=== PATIENT | male | born 1980 ===

== ENCOUNTER 2017-01-06 22:44 | Emergency (ER) | payer MEDICAID ==
[2017-01-07] MEDS ORDERED: IBUPROFEN 600 MG TABLET ONE (01:21)
[2017-01-07] MEDS ORDERED: ACETAMINOPHEN 500 MG TABLET ONE (01:21)
--- NOTE | 2017-01-07 08:11 | RAD ---
Exam: Two-view chest COMPARISON: 01/20/2015, 03/19/2014 INDICATION: Cough and fever. FINDINGS: PA and lateral views of the chest were obtained. Cardiac silhouette is within normal limits and stable. There is no focal airspace disease or pleural effusion. Bones of the chest wall within normal limits. IMPRESSION: No radiographic evidence of pneumonia.
== END 2017-01-07 02:38 | disposition home or self-care (01) ==
LOC: ED 22:44
DX: J11.1 Influenza due to unidentified influenza virus with other respiratory manifestations (principal)
CPT/HCPCS: 87880; 71020; 87804; 99283 ×2; A9270 ×2